=== PATIENT | female | born 1990 | race Caucasian/White ===

== ENCOUNTER 2017-10-03 14:58 | Emergency (ER) | payer OTHER ==
[~2017-10-03] VITALS: Ht 162.6 cm; Wt 64.0 kg
[~2017-10-03 14:58] MED LIST: XULANE PATCH1 EACH TD
[2017-10-03] MEDS ORDERED: FLEXERIL10 MG PO (16:20)
[2017-10-03] MEDS ORDERED: IBUPROFEN800 MG PO (16:20)
[2017-10-03 17:19] VITALS: BP 142/86
== END 2017-10-03 17:20 | disposition home or self-care (01) ==
LOC: EME 14:58
DX: S16.1XXA Strain of muscle, fascia and tendon at neck level, initial encounter (principal); M54.9 Dorsalgia, unspecified; V43.52XA Car driver injured in collision with other type car in traffic accident, initial encounter; Y92.410 Unspecified street and highway as the place of occurrence of the external cause; Z88.0 Allergy status to penicillin; Z88.1 Allergy status to other antibiotic agents
CPT/HCPCS: 99281; 99283